=== PATIENT | male | born 1945 | race Caucasian/White ===

== ENCOUNTER 2018-04-28 07:15 | Inpatient (IN) | payer MEDICARE, OTHER ==
[~2018-04-28] VITALS: Ht 180.3 cm; Wt 175.0 kg
[2018-04-28 07:42] LABS: BASOPHILS % (AUTO) 0.1 % (0-1); EOSINOPHILS % (AUTO) 0 % (0-6); HEMATOCRIT 40.1 % (42.0-52.0); HEMOGLOBIN 13.9 g/dl (14.0-17.9); LYMPHOCYTES # (AUTO) 0.5 X10'3 (1.1-4.8); LYMPHOCYTES % (AUTO) 3.5 % (21-51); MEAN CORPUSCULAR HEMOGLOBIN 33.2 PG (27.0-31.0); MEAN CORPUSCULAR HGB CONC 34.8 % (33.0-36.5); MEAN CORPUSCULAR VOLUME 95.6 FL (78-98); MEAN PLATELET VOLUME 7.9 FL (7.4-10.4); MONOCYTES # (AUTO) 0.6 X10'3 (0-0.9); MONOCYTES % (AUTO) 4.6 % (2-12); NEUTROPHILS % (AUTO) 91.8 % (42-75); PLATELET COUNT 157 X10'3 (140-440); RED BLOOD COUNT 4.19 X10'6 (4.70-6.10); RED CELL DISTRIBUTION WIDTH 16.1 % (11.5-14.5); WHITE BLOOD COUNT 13.1 X10'3 (4.5-11.0)
[2018-04-28 07:58] LABS: ALANINE AMINOTRANSFERASE 34 U/L (12-78); ALBUMIN 2.9 G/DL (3.4-5.0); ALBUMIN/GLOBULIN RATIO 0.7 (1.1-1.5); ALKALINE PHOSPHATASE 97 IU/L (46-116); ANION GAP 10 (8-16); ASPARTATE AMINO TRANSFERASE 26 U/L (10-37); BLOOD UREA NITROGEN 17 MG/DL (7-18); BUN/CREATININE RATIO 14.8 (5.4-32.0); CHLORIDE 98 MMOL/L (99-107); CREATININE 1.15 MG/DL (0.60-1.10); GLUCOSE 282 MG/DL (70-104); POTASSIUM 4.1 MMOL/L (3.5-5.1); SODIUM 134 MMOL/L (135-145); TOTAL CARBON DIOXIDE 25.9 MMOL/L (24-32); TOTAL PROTEIN 7.1 G/DL (6.4-8.2); eGFR 63 ML/MIN
[2018-04-28 08:10] LABS: INR 1.1 INR; PROTHROMBIN TIME 11.2 SECONDS (9.0-12.0)
[2018-04-28] MEDS ORDERED: normal saline 1000ML IV soln IVB ONE ×2 (08:10)
[2018-04-28] MEDS ORDERED: HYDROmorphone 1 mg/ml syringe IV ONE ×2 (08:10→11:05)
[2018-04-28] MEDS ORDERED: ondansetron/PF 4mg/2ml inj IV ONE (08:10)
[2018-04-28 08:40] LABS: LIPASE < 50 U/L (73-393)
[2018-04-28] MEDS ORDERED: iohexol 300mg/ml 100ml inj. ONE (08:42)
[2018-04-28 08:46] LABS: CLARITY,URINE CLEAR (Clear); COLOR,URINE YELLOW (Yellow); GLUCOSE, URINE >=1000 mg/dl (Neg); KETONES,URINE 40 mg/dl (Neg); LEUKOCYTE ESTERASE ,URINE NEGATIVE (Neg); NITRITES, URINE NEGATIVE (Neg); OCCULT BLOOD,URINE TRACE-INTACT (Neg); PROTEIN,URINE 100 mg/dl (Neg)
[2018-04-28 08:47] LABS: UA COLLECTION TYPE VOIDED
[2018-04-28 08:51] LABS: SQUAMOUS EPITHELIAL CELL,UR MODERATE /LPF (FEW)
[2018-04-28 08:52] LABS: BACTERIA,URINE 1+ /HPF (Neg); WBC,URINE 0-4 /HPF (0-4)
[2018-04-28] MEDS: MESSAGE TO NURSING PO SCH (09:00)
[2018-04-28] MEDS ORDERED: azithromycin/NS 500mg/250ml 250 ML IV ONE (09:55)
[2018-04-28] MEDS ORDERED: CefTRIAXone 2gm/D5W 50ml 50 ML IV ONE (09:55)
[2018-04-28] MEDS ORDERED: INSU100V9 SQ (10:36)
[2018-04-28] MEDS ORDERED: POTA10TA15 PO (10:36)
[2018-04-28] MEDS ORDERED: GABA-532 PO (10:36)
[2018-04-28] MEDS ORDERED: PIOG45TA65 PO (10:36)
[2018-04-28] MEDS ORDERED: PANCREATIC ENZYME PO (12:29)
[2018-04-28] MEDS: K and/or MAG REPLACEMENT MC SCH (12:30)
[2018-04-28] MEDS ORDERED: morphine 4 MG/ML inj SYRINge IV PRN (12:30)
[2018-04-28] MEDS ORDERED: magnesium 1gm/100ml D5W IVPB 100 ML IV PRN (12:30)
[2018-04-28] MEDS ORDERED: HYDROcodone/acetaminophen 10/325mg tab PO PRN (12:30)
[2018-04-28] MEDS ORDERED: HYDROcodone/acetaminophen 5mg/325mg tablet PO PRN (12:30)
[2018-04-28] MEDS ORDERED: FURO-150 PO (12:30)
[2018-04-28] MEDS ORDERED: acetaminophen 325mg tablet PO PRN (12:30)
[2018-04-28] MEDS ORDERED: ondansetron/PF 4mg/2ml inj IV PRN (12:30)
[2018-04-28] MEDS ORDERED: magnesium 4gm in 100ml NS 100 ML IV PRN (12:30)
[2018-04-28] MEDS ORDERED: diphenhydrAMINE 25mg capsule PO PRN (12:30)
[2018-04-28] MEDS ORDERED: potassium Cl 20 mEq SR tablet PO PRN ×2 (12:30)
[2018-04-28] MEDS ORDERED: mag hydrox/Alum hydrox/simeth 30ml oral suspension PO PRN (12:30)
[2018-04-28] MEDS ORDERED: magnesium hydroxide 30ml (MOM) UD suspension PO PRN (12:30)
[2018-04-28] MEDS ORDERED: potassium Cl 40MEQ/NS 500ml 500 ML IV PRN ×2 (12:30)
[2018-04-28] MEDS ORDERED: INSU100I8 SQ (12:32)
[2018-04-28] MEDS ORDERED: MESSAGE TO PHARMACY PO ONE (12:40)
[2018-04-28] MEDS ORDERED: dextrose ORAL solution 15 GM/59 ML bottle PO PRN ×2 (12:40)
[2018-04-28] MEDS ORDERED: glucagon, human recombinant 1mg kit SUBCUT PRN (12:40)
[2018-04-28] MEDS ORDERED: dextrose 50%-water 50ml dispensing syringe IV PRN ×2 (12:40)
[2018-04-28] MEDS: normal saline 1000ml 1,000 ML IV SCH (12:49)
[2018-04-28] MEDS: levoFLOXACIN-Levaquin 750MG/D5 150 ML IV SCH (12:49)
[2018-04-28] MEDS: morphine 4 MG/ML inj SYRINge IV PRN ×3 (13:50→20:12)
[2018-04-28 14:35] VITALS: BP 172/70
[2018-04-28 15:15] LABS: HEMOGLOBIN A1C 6.6 % (4.5-6.2)
[2018-04-28] MEDS: gabapentin 300mg capsule PO SCH ×2 (16:13→21:04)
[2018-04-28 18:00] VITALS: BP 161/72
[2018-04-28] MEDS: insulin Lispro (HumaLOG) vial - multi-dose SQ SCH (19:12)
[2018-04-28] MEDS: heparin, porcine 5000 units/ml vial SQ SCH (19:16)
[2018-04-28] MEDS ORDERED: temazepam 15mg capsule PO PRN (21:00)
[2018-04-28] MEDS: insulin glargine (Lantus) pen - multi-dose SQ SCH (21:07)
[2018-04-28 22:00] VITALS: BP 160/72
[2018-04-29] MEDS: morphine 4 MG/ML inj SYRINge IV PRN ×2 (00:21→05:33)
[2018-04-29] MEDS: normal saline 1000ml 1,000 ML IV SCH ×3 (01:56→23:52)
[2018-04-29 04:57] LABS: BASOPHILS % (AUTO) 0.3 % (0-1); EOSINOPHILS # (AUTO) 0.1 X10'3 (0-0.9); EOSINOPHILS % (AUTO) 1.9 % (0-6); HEMATOCRIT 35.7 % (42.0-52.0); HEMOGLOBIN 11.9 g/dl (14.0-17.9); LYMPHOCYTES # (AUTO) 0.6 X10'3 (1.1-4.8); MEAN CORPUSCULAR HEMOGLOBIN 32.6 PG (27.0-31.0); MEAN CORPUSCULAR HGB CONC 33.4 % (33.0-36.5); MEAN CORPUSCULAR VOLUME 97.5 FL (78-98); MEAN PLATELET VOLUME 8.1 FL (7.4-10.4); MONOCYTES # (AUTO) 0.6 X10'3 (0-0.9); MONOCYTES % (AUTO) 10.3 % (2-12); NEUTROPHILS # (AUTO) 4.7 X10'3 (1.8-7.7); NEUTROPHILS % (AUTO) 77.5 % (42-75); PLATELET COUNT 139 X10'3 (140-440); RED BLOOD COUNT 3.67 X10'6 (4.70-6.10); RED CELL DISTRIBUTION WIDTH 16.3 % (11.5-14.5); WHITE BLOOD COUNT 6.1 X10'3 (4.5-11.0)
[2018-04-29 05:22] LABS: ALANINE AMINOTRANSFERASE 18 U/L (12-78); ALBUMIN 2.4 G/DL (3.4-5.0); ALBUMIN/GLOBULIN RATIO 0.6 (1.1-1.5); ALKALINE PHOSPHATASE 78 IU/L (46-116); ANION GAP 7 (8-16); ASPARTATE AMINO TRANSFERASE 27 U/L (10-37); BILIRUBIN,TOTAL 0.5 MG/DL (0.1-1.0); BLOOD UREA NITROGEN 14 MG/DL (7-18); BUN/CREATININE RATIO 15.4 (5.4-32.0); CALCIUM 8.3 MG/DL (8.5-10.1); CHLORIDE 103 MMOL/L (99-107); CHOL/HDL RATIO 2.4 (0.00-4.99); CHOLESTEROL 109 MG/DL (0-200); CREATININE 0.91 MG/DL (0.60-1.10); GLUCOSE 172 MG/DL (70-104); HDL CHOLESTEROL 45 MG/DL (35-60); LDL CHOLESTEROL 45 MG/DL (50-100); LIPASE < 50 U/L (73-393); MAGNESIUM 1.7 MG/DL (1.5-2.4); PHOSPHORUS 2.8 MG/DL (2.3-4.5); POTASSIUM 4.4 MMOL/L (3.5-5.1); SODIUM 138 MMOL/L (135-145); TOTAL CARBON DIOXIDE 28.4 MMOL/L (24-32); TOTAL PROTEIN 6.1 G/DL (6.4-8.2); TRIGLYCERIDES 50 MG/DL (20-135); eGFR 82 ML/MIN
[2018-04-29 06:00] VITALS: BP 150/73
[2018-04-29 07:00] VITALS: BP 137/65
[2018-04-29] MEDS ORDERED: PANCREATIC ENZYME PO SCH (08:00)
[2018-04-29] MEDS: K and/or MAG REPLACEMENT MC SCH (08:00)
[2018-04-29] MEDS: pantoprazole 40mg Tablet.DR PO SCH (08:03)
[2018-04-29] MEDS: gabapentin 300mg capsule PO SCH ×3 (08:03→21:16)
[2018-04-29] MEDS: furosemide 40mg tablet PO SCH (08:03)
[2018-04-29] MEDS: heparin, porcine 5000 units/ml vial SQ SCH ×2 (08:04→21:16)
[2018-04-29] MEDS: levoFLOXACIN-Levaquin 750MG/D5 150 ML IV SCH (08:05)
[2018-04-29] MEDS: insulin Lispro (HumaLOG) vial - multi-dose SQ SCH ×2 (08:18→19:01)
[2018-04-29] MEDS ORDERED: iohexol 350MG/ML 100ml bottle IV ONE (08:33)
[2018-04-29] MEDS: MESSAGE TO NURSING PO SCH (09:00)
[2018-04-29] MEDS ORDERED: LIPASE/PROTEASE/AMYLASE 4,200 unit CAPSULE.DR PO SCH (09:32)
[2018-04-29 10:00] VITALS: BP 150/63
[2018-04-29 11:48] LABS: CLARITY,URINE CLEAR (Clear); COLOR,URINE YELLOW (Yellow); GLUCOSE, URINE NEGATIVE (Neg); KETONES,URINE NEGATIVE (Neg); LEUKOCYTE ESTERASE ,URINE NEGATIVE (Neg); NITRITES, URINE NEGATIVE (Neg); OCCULT BLOOD,URINE TRACE-INTACT (Neg); PH,URINE 5.5 (4.8-8.0); PROTEIN,URINE NEGATIVE (Neg); UROBILINOGEN,URINE 0.2 E.U/dL (0.2-1.0)
[2018-04-29 12:01] LABS: UA COLLECTION TYPE NON-SPECIFIED
[2018-04-29 12:02] LABS: WBC,URINE 0-4 /HPF (0-4)
[2018-04-29 12:03] LABS: BACTERIA,URINE NONE SEEN /HPF (Neg); HYALINE CASTS 0-3 /LPF (NEGATIVE); RBC,URINE 0-2 /HPF (0-2); SQUAMOUS EPITHELIAL CELL,UR FEW /LPF (FEW)
[2018-04-29 18:00] VITALS: BP 148/73
[2018-04-29] MEDS: LIPASE/PROTEASE/AMYLASE 4,200 unit CAPSULE.DR PO SCH (18:45)
[2018-04-29] MEDS: insulin glargine (Lantus) pen - multi-dose SQ SCH (21:26)
[2018-04-29 22:00] VITALS: BP 127/55
[2018-04-30 05:38] LABS: BASOPHILS % (AUTO) 0.6 % (0-1); EOSINOPHILS # (AUTO) 0.1 X10'3 (0-0.9); EOSINOPHILS % (AUTO) 2.8 % (0-6); HEMATOCRIT 35.8 % (42.0-52.0); LYMPHOCYTES # (AUTO) 0.7 X10'3 (1.1-4.8); LYMPHOCYTES % (AUTO) 13.9 % (21-51); MEAN CORPUSCULAR HEMOGLOBIN 32.7 PG (27.0-31.0); MEAN CORPUSCULAR HGB CONC 33.6 % (33.0-36.5); MEAN CORPUSCULAR VOLUME 97.2 FL (78-98); MEAN PLATELET VOLUME 8.2 FL (7.4-10.4); MONOCYTES # (AUTO) 0.7 X10'3 (0-0.9); MONOCYTES % (AUTO) 13.1 % (2-12); NEUTROPHILS # (AUTO) 3.6 X10'3 (1.8-7.7); NEUTROPHILS % (AUTO) 69.6 % (42-75); PLATELET COUNT 149 X10'3 (140-440); RED BLOOD COUNT 3.68 X10'6 (4.70-6.10); RED CELL DISTRIBUTION WIDTH 15.6 % (11.5-14.5); WHITE BLOOD COUNT 5.2 X10'3 (4.5-11.0)
[2018-04-30 06:00] VITALS: BP 152/77
[2018-04-30 07:21] LABS: ALANINE AMINOTRANSFERASE 33 U/L (12-78); ALBUMIN 2.3 G/DL (3.4-5.0); ALBUMIN/GLOBULIN RATIO 0.6 (1.1-1.5); ALKALINE PHOSPHATASE 68 IU/L (46-116); ANION GAP 4 (8-16); ASPARTATE AMINO TRANSFERASE 32 U/L (10-37); BILIRUBIN,TOTAL 0.6 MG/DL (0.1-1.0); BLOOD UREA NITROGEN 11 MG/DL (7-18); BUN/CREATININE RATIO 11.2 (5.4-32.0); CALCIUM 7.9 MG/DL (8.5-10.1); CHLORIDE 103 MMOL/L (99-107); CREATININE 0.98 MG/DL (0.60-1.10); GLUCOSE 123 MG/DL (70-104); MAGNESIUM 1.4 MG/DL (1.5-2.4); PHOSPHORUS 2.8 MG/DL (2.3-4.5); POTASSIUM 3.6 MMOL/L (3.5-5.1); SODIUM 135 MMOL/L (135-145); TOTAL CARBON DIOXIDE 28.4 MMOL/L (24-32); TOTAL PROTEIN 5.9 G/DL (6.4-8.2); eGFR 76 ML/MIN
[2018-04-30] MEDS: K and/or MAG REPLACEMENT MC SCH (08:00)
[2018-04-30] MEDS: insulin Lispro (HumaLOG) vial - multi-dose SQ SCH ×3 (08:04→18:50)
[2018-04-30] MEDS: heparin, porcine 5000 units/ml vial SQ SCH ×2 (08:07→19:24)
[2018-04-30] MEDS: furosemide 40mg tablet PO SCH (08:08)
[2018-04-30] MEDS: gabapentin 300mg capsule PO SCH ×3 (08:08→19:23)
[2018-04-30] MEDS: pantoprazole 40mg Tablet.DR PO SCH (08:08)
[2018-04-30] MEDS: normal saline 1000ml 1,000 ML IV SCH (08:08)
[2018-04-30] MEDS: LIPASE/PROTEASE/AMYLASE 4,200 unit CAPSULE.DR PO SCH ×2 (08:10→18:52)
[2018-04-30] MEDS: levoFLOXACIN-Levaquin 750MG/D5 150 ML IV SCH (08:14)
[2018-04-30 10:00] VITALS: BP 118/55
[2018-04-30 18:00] VITALS: BP 137/66
[2018-04-30] MEDS: magnesium Cl slow-release 64mg tablet PO PRN (19:24)
[2018-04-30] MEDS: insulin glargine (Lantus) pen - multi-dose SQ SCH (21:18)
[2018-04-30 22:00] VITALS: BP 133/61
[2018-05-01] MEDS: normal saline 1000ml 1,000 ML IV SCH (03:43)
[2018-05-01 06:00] VITALS: BP 159/76
[2018-05-01] MEDS: LIPASE/PROTEASE/AMYLASE 4,200 unit CAPSULE.DR PO SCH ×2 (07:36→17:57)
[2018-05-01] MEDS: heparin, porcine 5000 units/ml vial SQ SCH ×2 (07:36→21:28)
[2018-05-01] MEDS: gabapentin 300mg capsule PO SCH ×3 (07:37→21:28)
[2018-05-01] MEDS: K and/or MAG REPLACEMENT MC SCH (07:37)
[2018-05-01] MEDS: pantoprazole 40mg Tablet.DR PO SCH (07:37)
[2018-05-01] MEDS: magnesium Cl slow-release 64mg tablet PO PRN (07:37)
[2018-05-01] MEDS: furosemide 40mg tablet PO SCH (07:37)
[2018-05-01 08:35] LABS: ALANINE AMINOTRANSFERASE 38 U/L (12-78); ALBUMIN 2.4 G/DL (3.4-5.0); ALKALINE PHOSPHATASE 75 IU/L (46-116); ANION GAP 4 (8-16); ASPARTATE AMINO TRANSFERASE 47 U/L (10-37); BILIRUBIN,TOTAL 0.8 MG/DL (0.1-1.0); BLOOD UREA NITROGEN 9 MG/DL (7-18); BUN/CREATININE RATIO 10.3 (5.4-32.0); CALCIUM 8.3 MG/DL (8.5-10.1); CHLORIDE 102 MMOL/L (99-107); CREATININE 0.87 MG/DL (0.60-1.10); GLUCOSE 117 MG/DL (70-104); MAGNESIUM 1.5 MG/DL (1.5-2.4); POTASSIUM 3.5 MMOL/L (3.5-5.1); SODIUM 135 MMOL/L (135-145); TOTAL CARBON DIOXIDE 28.9 MMOL/L (24-32); eGFR 87 ML/MIN
[2018-05-01 08:39] LABS: ALBUMIN/GLOBULIN RATIO 0.6 (1.1-1.5); TOTAL PROTEIN 6.3 G/DL (6.4-8.2)
[2018-05-01 08:43] LABS: BASOPHILS % (AUTO) 0.2 % (0-1); EOSINOPHILS # (AUTO) 0.2 X10'3 (0-0.9); HEMATOCRIT 36.4 % (42.0-52.0); HEMOGLOBIN 12.5 g/dl (14.0-17.9); LYMPHOCYTES # (AUTO) 0.7 X10'3 (1.1-4.8); LYMPHOCYTES % (AUTO) 12.1 % (21-51); MEAN CORPUSCULAR HGB CONC 34.4 % (33.0-36.5); MEAN CORPUSCULAR VOLUME 95.8 FL (78-98); MEAN PLATELET VOLUME 8.4 FL (7.4-10.4); MONOCYTES # (AUTO) 0.7 X10'3 (0-0.9); MONOCYTES % (AUTO) 11.9 % (2-12); NEUTROPHILS # (AUTO) 4.1 X10'3 (1.8-7.7); NEUTROPHILS % (AUTO) 71.8 % (42-75); PLATELET COUNT 164 X10'3 (140-440); RED CELL DISTRIBUTION WIDTH 15.7 % (11.5-14.5); WHITE BLOOD COUNT 5.7 X10'3 (4.5-11.0)
[2018-05-01] MEDS: insulin Lispro (HumaLOG) vial - multi-dose SQ SCH ×3 (09:12→18:38)
[2018-05-01 10:00] VITALS: BP 129/59
[2018-05-01] MEDS: levoFLOXACIN 750MG TABLET PO SCH (11:44)
[2018-05-01 18:00] VITALS: BP 153/62
[2018-05-01] MEDS: insulin glargine (Lantus) pen - multi-dose SQ SCH (21:36)
[2018-05-01 22:00] VITALS: BP 158/78
[2018-05-02] MEDS: normal saline 1000ml 1,000 ML IV SCH (01:02)
[2018-05-02 06:30] VITALS: BP 157/71
[2018-05-02] MEDS: LIPASE/PROTEASE/AMYLASE 4,200 unit CAPSULE.DR PO SCH ×2 (07:34→17:34)
[2018-05-02] MEDS: gabapentin 300mg capsule PO SCH ×3 (07:35→20:23)
[2018-05-02] MEDS: furosemide 40mg tablet PO SCH (07:35)
[2018-05-02] MEDS: pantoprazole 40mg Tablet.DR PO SCH (07:35)
[2018-05-02] MEDS: heparin, porcine 5000 units/ml vial SQ SCH ×2 (07:35→20:23)
[2018-05-02] MEDS: K and/or MAG REPLACEMENT MC SCH (08:00)
[2018-05-02 10:23] VITALS: BP 151/65
[2018-05-02 10:55] LABS: BASOPHILS % (AUTO) 0.5 % (0-1); EOSINOPHILS # (AUTO) 0.2 X10'3 (0-0.9); EOSINOPHILS % (AUTO) 3.8 % (0-6); HEMOGLOBIN 13.2 g/dl (14.0-17.9); LYMPHOCYTES # (AUTO) 0.6 X10'3 (1.1-4.8); LYMPHOCYTES % (AUTO) 10.8 % (21-51); MEAN CORPUSCULAR HEMOGLOBIN 32.8 PG (27.0-31.0); MEAN CORPUSCULAR HGB CONC 33.8 % (33.0-36.5); MEAN PLATELET VOLUME 8.6 FL (7.4-10.4); MONOCYTES # (AUTO) 0.6 X10'3 (0-0.9); MONOCYTES % (AUTO) 9.6 % (2-12); NEUTROPHILS # (AUTO) 4.4 X10'3 (1.8-7.7); NEUTROPHILS % (AUTO) 75.3 % (42-75); PLATELET COUNT 176 X10'3 (140-440); RED BLOOD COUNT 4.02 X10'6 (4.70-6.10); RED CELL DISTRIBUTION WIDTH 15.7 % (11.5-14.5); WHITE BLOOD COUNT 5.9 X10'3 (4.5-11.0)
[2018-05-02 11:08] LABS: ALANINE AMINOTRANSFERASE 47 U/L (12-78); ALBUMIN 2.5 G/DL (3.4-5.0); ALBUMIN/GLOBULIN RATIO 0.6 (1.1-1.5); ALKALINE PHOSPHATASE 79 IU/L (46-116); ANION GAP 6 (8-16); ASPARTATE AMINO TRANSFERASE 55 U/L (10-37); BILIRUBIN,TOTAL 0.8 MG/DL (0.1-1.0); BLOOD UREA NITROGEN 8 MG/DL (7-18); BUN/CREATININE RATIO 8.9 (5.4-32.0); CALCIUM 8.4 MG/DL (8.5-10.1); CHLORIDE 101 MMOL/L (99-107); GLUCOSE 184 MG/DL (70-104); MAGNESIUM 1.6 MG/DL (1.5-2.4); PHOSPHORUS 2.6 MG/DL (2.3-4.5); POTASSIUM 3.7 MMOL/L (3.5-5.1); SODIUM 136 MMOL/L (135-145); TOTAL CARBON DIOXIDE 29.5 MMOL/L (24-32); TOTAL PROTEIN 6.5 G/DL (6.4-8.2); eGFR 83 ML/MIN
[2018-05-02] MEDS: levoFLOXACIN 750MG TABLET PO SCH (11:30)
[2018-05-02] MEDS: insulin Lispro (HumaLOG) vial - multi-dose SQ SCH ×2 (13:58→20:23)
[2018-05-02 18:50] VITALS: BP 141/75
[2018-05-02] MEDS: acetaminophen 325mg tablet PO PRN (20:24)
[2018-05-02] MEDS: insulin glargine (Lantus) pen - multi-dose SQ SCH (21:45)
[2018-05-02 23:31] VITALS: BP 135/62
[2018-05-03 05:30] VITALS: BP 150/67
[2018-05-03] MEDS: gabapentin 300mg capsule PO SCH (07:23)
[2018-05-03] MEDS: acetaminophen 325mg tablet PO PRN (07:23)
[2018-05-03] MEDS: furosemide 40mg tablet PO SCH (07:23)
[2018-05-03] MEDS: pantoprazole 40mg Tablet.DR PO SCH (07:23)
[2018-05-03] MEDS: LIPASE/PROTEASE/AMYLASE 4,200 unit CAPSULE.DR PO SCH (07:24)
[2018-05-03] MEDS: heparin, porcine 5000 units/ml vial SQ SCH (07:25)
[2018-05-03 10:43] LABS: BASOPHILS % (AUTO) 0 % (0-1); EOSINOPHILS # (AUTO) 0.3 X10'3 (0-0.9); EOSINOPHILS % (AUTO) 4.8 % (0-6); HEMATOCRIT 39.3 % (42.0-52.0); HEMOGLOBIN 13.3 g/dl (14.0-17.9); LYMPHOCYTES # (AUTO) 0.7 X10'3 (1.1-4.8); LYMPHOCYTES % (AUTO) 12.7 % (21-51); MEAN CORPUSCULAR HEMOGLOBIN 33.1 PG (27.0-31.0); MEAN CORPUSCULAR VOLUME 97.4 FL (78-98); MEAN PLATELET VOLUME 8.1 FL (7.4-10.4); MONOCYTES # (AUTO) 0.4 X10'3 (0-0.9); MONOCYTES % (AUTO) 7.9 % (2-12); NEUTROPHILS % (AUTO) 74.6 % (42-75); PLATELET COUNT 198 X10'3 (140-440); RED BLOOD COUNT 4.03 X10'6 (4.70-6.10); RED CELL DISTRIBUTION WIDTH 15.1 % (11.5-14.5); WHITE BLOOD COUNT 5.4 X10'3 (4.5-11.0)
[2018-05-03 11:13] LABS: ALANINE AMINOTRANSFERASE 51 U/L (12-78); ALBUMIN 2.5 G/DL (3.4-5.0); ALBUMIN/GLOBULIN RATIO 0.6 (1.1-1.5); ALKALINE PHOSPHATASE 76 IU/L (46-116); ANION GAP 6 (8-16); ASPARTATE AMINO TRANSFERASE 61 U/L (10-37); BILIRUBIN,TOTAL 0.7 MG/DL (0.1-1.0); BLOOD UREA NITROGEN 7 MG/DL (7-18); BUN/CREATININE RATIO 7.9 (5.4-32.0); CALCIUM 8.4 MG/DL (8.5-10.1); CHLORIDE 101 MMOL/L (99-107); CREATININE 0.89 MG/DL (0.60-1.10); GLUCOSE 196 MG/DL (70-104); MAGNESIUM 1.6 MG/DL (1.5-2.4); PHOSPHORUS 2.6 MG/DL (2.3-4.5); POTASSIUM 3.6 MMOL/L (3.5-5.1); SODIUM 137 MMOL/L (135-145); TOTAL CARBON DIOXIDE 30.1 MMOL/L (24-32); TOTAL PROTEIN 6.5 G/DL (6.4-8.2); eGFR 84 ML/MIN
== END 2018-05-03 16:01 | DRG 871 ==
LOC: ER 07:15 → ED HOLD 12:30 → ORTHO 4S 14:35
PROVIDERS: ADMIT Family Medicine; ATTEND Family Medicine
DX: A41.9 Sepsis, unspecified organism (principal); K85.90 Acute pancreatitis without necrosis or infection, unspecified; J18.9 Pneumonia, unspecified organism; N39.0 Urinary tract infection, site not specified; Z68.43 Body mass index [BMI] 50.0-59.9, adult; K86.1 Other chronic pancreatitis; E66.01 Morbid (severe) obesity due to excess calories; E11.9 Type 2 diabetes mellitus without complications; I89.0 Lymphedema, not elsewhere classified; M47.816 Spondylosis without myelopathy or radiculopathy, lumbar region; R09.02 Hypoxemia; D72.829 Elevated white blood cell count, unspecified; Z90.49 Acquired absence of other specified parts of digestive tract; Z79.4 Long term (current) use of insulin; Z79.899 Other long term (current) drug therapy; Z86.73 Personal history of transient ischemic attack (TIA), and cerebral infarction without residual deficits; Z80.1 Family history of malignant neoplasm of trachea, bronchus and lung; Z80.0 Family history of malignant neoplasm of digestive organs
CPT/HCPCS: 36415; 71045; 71275; 74177; 80053; 80061; 81001; 82948; 83036; 83605; 83690; 83735; 84100; 84145; 84443; 84484; 85025; 85610; 87040; 87070; 87088; 93005; 96361; 96365; 96368; 96375; 97110; 97116; 97161; 97530; 99285; J0456; J0696; J1170; J1644; J1815; J1956; J2270; J2405; J7030; Q9967